=== PATIENT | female | born 1995 | race African-American/Black ===

== ENCOUNTER 2018-11-06 07:49 | Emergency (ER) | payer MEDICAID, SELFPAY | END 2018-11-06 08:04 | disposition home or self-care (01) | LOC: SCSER 07:49 | DX: K13.0 Diseases of lips (principal) | CPT/HCPCS: 99283 ==

== ENCOUNTER 2019-02-21 14:15 | Emergency (ER) | payer SELFPAY ==
[~2019-02-21 14:15] MED LIST: Iopamidol 370 76% 100 ML VIAL ONE
[2019-02-21 15:04] LABS: BHCG - Serum Negative (NEGATIVE); Pregs Control Background? CLEAR/WHITE (CLR/WHITE); Pregs Control Bar Appear? YES (CONTROL BAR)
[2019-02-21 15:09] LABS: #Basophils 0.2 thou/uL (0.0-0.2); #Eosinphils 0.1 thou/uL (0.0-0.7); #Lymphocytes 2.1 thou/uL (1.20-3.40); #Monocytes 0.8 thou/uL (0.11-0.59); #Neutrophils 7.4 thou/uL (1.40-6.50); %Basophils 1.7 % (0.0-1.0); %Eosinophils 0.7 % (0.0-10.0); %Lymphocytes 19.6 % (21.0-51.0); %Monocytes 7.7 % (0.0-10.0); %Neutrophils 70.4 % (42.0-75.0); Hemoglobin 12.6 g/dL (12.0-16.0); Mean Corpuscular Hemoglobin 27.5 pg (27.0-31.0); Mean Platelet Volume 5.7 fL (7.4-10.4); Platelet Count 446 thou/uL (130-400); RBC Distribution Width 12.2 % (11.5-14.5); Red Blood Cell (RBC) Count 4.58 mill/uL (4.20-5.40); White Blood Cell (WBC) Count 10.5 thou/uL (4.8-10.8)
[2019-02-21 15:12] LABS: ALT (SGPT) 57 U/L (8-55); AST (SGOT) 43 U/L (5-34); Albumin 3.8 g/dL (3.5-5.0); Alkaline Phosphatase 86 U/L (40-150); Anion Gap 12 mmol/L (10-20); BUN (Urea Nitrogen) 6 mg/dL (7.0-18.7); Bilirubin, Total 0.6 mg/dL (0.2-1.2); Calc. Creatinine Clearance 0 mL/min (70-130); Calcium 9.4 mg/dL (7.8-10.44); Carbon Dioxide 26 mmol/L (22-29); Chloride 105 mmol/L (98-107); Estimated GFR-MDRD Greater than 90; Globulin 3.3 g/dL (2.4-3.5); Glucose 97 mg/dL (70-105); Potassium 3.6 mmol/L (3.5-5.1); Protein, Total 7.1 g/dL (6.0-8.3); Sodium 139 mmol/L (136-145)
--- NOTE | 2019-02-21 15:57 | CT ---
EXAM: CT Neck Soft Tissue W Con PROVIDED CLINICAL HISTORY: Left-sided neck fullness and throat pain COMPARISON: None FINDINGS: There is enlargement of both palatine tonsils with heterogeneous enhancement of the left palatine ton tom. Evaluation is somewhat limited due to beam artifact from dental amalgam. There is no definite evidence for a focal area of true fluid density to suggest abscess. Apparent somewhat asymmetric thic kening of the left aryepiglottic fold is noted. No thickening of the epiglottis. No prevertebral fluid density is seen. Presumably reactive jugulodigastric lymph nodes are seen. The submandibular an d parotid glands appear normal. IMPRESSION: 1. Findings compatible with bilateral palatine tonsillitis without evidence for intratonsillar or per itonsillar abscess. 2. Apparent focal thickening of the left aryepiglottic fold, which could be reactive. Other etiologie s are not excluded. Correlation with direct visualization is recommended.
== END 2019-02-21 16:42 | disposition home or self-care (01) ==
LOC: SCSER 14:15
DX: J02.0 Streptococcal pharyngitis (principal)
CPT/HCPCS: 70491; 80053; 83605; 84703; 85025; 87430; 96361; 96372; 96374; 96375; Q9967

== ENCOUNTER 2020-01-04 16:03 | Emergency (ER) | payer SELFPAY, OTHER ==
[2020-01-05 14:40] LABS: SARS-CoV-2 MS2 Positive; SARS-CoV-2 N Gene Negative; SARS-CoV-2 S Gene Negative; SARS-CoV-2 orf1ab Negative
== END 2020-01-04 16:37 | disposition home or self-care (01) ==
LOC: ERS 16:03
DX: Z20.828 Contact with and (suspected) exposure to other viral communicable diseases (principal)
CPT/HCPCS: 87635; 99283; U0003